=== PATIENT | male | born 1955 | race Caucasian/White ===

== ENCOUNTER 2016-08-18 18:53 | Inpatient (IN) | payer BC, OTHER ==
[~2016-08-18] VITALS: Ht 177.8 cm; Wt 121.4 kg
[2016-08-18] MEDS ORDERED: VANCOMYCIN PER PHARMACY MC ONE (20:30)
[2016-08-18] MEDS ORDERED: SODIUM CHLORIDE 0.9% 1,000ML IVBOLUS ONE (20:30)
[2016-08-18] MEDS ORDERED: SODIUM CHLORIDE FLUSH 10ML SYR IVF ONE (20:30)
[2016-08-18 20:57] LABS: HEMOGLOBIN 12.2 g/dL (13.7-18.0)
[2016-08-18] MEDS ORDERED: PHARMACOKINETIC MONITORING MC ONE (21:00)
[2016-08-18] MEDS ORDERED: PHARMACOKINETIC CONSULTATION MC ONE (21:00)
[2016-08-18] MEDS ORDERED: PLEASE ENTER ALLERGIES MC SCH ×2 (21:00)
[2016-08-18] MEDS ORDERED: VANCOMYCIN 2,100 MG in SODIUM CHLORIDE 0.9% 500 ML IV ONE (21:00)
[2016-08-18 21:03] LABS: BLOOD UREA NITROGEN 16 mg/dL (7-18)
[2016-08-18] MEDS ORDERED: OMNIPAQUE 350 MG/ML, 100ML BOTTLE ONE (21:34)
[2016-08-18] MEDS ORDERED: HYDROcodone/APAP 5/325 TABLET ONE (22:07)
[2016-08-18] MEDS ORDERED: HYDROcodone/APAP 5/325 TABLET PO ONE (22:30)
[2016-08-18 22:57] VITALS: BP 148/87
[2016-08-18] MEDS ORDERED: ACETAMINOPHEN 325 MG TABLET PO PRN (23:00)
[2016-08-18] MEDS ORDERED: VANCOMYCIN PER PHARMACY MC PRN (23:00)
[2016-08-18] MEDS ORDERED: HYDROmorphone 2 MG/ML, 1ML IV PRN (23:00)
[2016-08-18] MEDS ORDERED: PHARMACOKINETIC MONITORING MC PRN (23:00)
[2016-08-18] MEDS ORDERED: BISACODYL 10 MG SUPP PR PRN (23:00)
[2016-08-18] MEDS ORDERED: ONDANSETRON 2MG/ML, 2ML IVP PRN (23:00)
[2016-08-18] MEDS ORDERED: POLYETHYLENE GLYCOL 17 GM PACKET PO PRN (23:00)
[2016-08-18] MEDS: SODIUM CHLORIDE FLUSH 10ML SYR IVF SCH (23:11)
[2016-08-18] MEDS: KETOROLAC 30 MG/1 ML IVPush SCH (23:28)
[2016-08-18] MEDS: HEPARIN 5,000 UNITS/ML, 1ML SQ SCH (23:28)
[2016-08-19] MEDS: PIPERACILLIN/TAZO/PMX 3.375GM 50 ML IV SCH ×4 (02:08→20:05)
[2016-08-19] MEDS ORDERED: FLU VACC QS2016-17 (36MOS+)UP/PF 0.5 ML IM-VACC ONE (05:00)
[2016-08-19 05:15] VITALS: BP 135/77
[2016-08-19] MEDS: KETOROLAC 30 MG/1 ML IVPush SCH ×3 (05:36→16:49)
[2016-08-19 06:06] LABS: HEMOGLOBIN 10.9 g/dL (13.7-18.0)
[2016-08-19 06:18] LABS: BLOOD UREA NITROGEN 17 mg/dL (7-18)
[2016-08-19 06:22] LABS: ASPARTATE AMINO TRANSFERASE 14 U/L (15-37)
[2016-08-19] MEDS: HEPARIN 5,000 UNITS/ML, 1ML SQ SCH ×2 (07:47→20:06)
[2016-08-19] MEDS: SENNA/DOCUSATE TABLET PO SCH ×2 (07:47→16:49)
[2016-08-19 08:19] VITALS: BP 108/57
[2016-08-19] MEDS: SODIUM CHLORIDE FLUSH 10ML SYR IVF SCH ×2 (10:14→20:06)
[2016-08-19] MEDS: ASCORBIC ACID 500 MG TABLET PO SCH (10:14)
[2016-08-19] MEDS: VANCOMYCIN 2,100 MG in SODIUM CHLORIDE 0.9% 500 ML IV SCH ×2 (10:15→22:56)
[2016-08-19] MEDS: SODIUM CHLORIDE NASAL SPRAY 45ML BOTTLE NAS SCH ×2 (11:00→22:55)
[2016-08-19] MEDS: FERROUS SULFATE 325 MG TABLET PO SCH ×2 (12:00→16:49)
[2016-08-19] MEDS ORDERED: LIDOCAINE 1%-EPI 1:100K, 20ML INFIL ONE (12:00)
[2016-08-19] MEDS: HYDROmorphone 2 MG/ML, 1ML IV PRN (13:22)
[2016-08-19 14:01] VITALS: BP 122/76
[2016-08-19] MEDS: FLUTICASONE NASAL SPRAY 16GM NAS SCH ×2 (14:26→22:55)
[2016-08-19] MEDS: LACTOBACILLUS CHEW TABLET PO SCH ×2 (16:48→22:56)
[2016-08-19 20:00] VITALS: BP 135/65
[2016-08-20] MEDS: KETOROLAC 30 MG/1 ML IVPush SCH ×4 (00:02→18:04)
[2016-08-20] MEDS: PIPERACILLIN/TAZO/PMX 3.375GM 50 ML IV SCH ×2 (02:06→07:44)
[2016-08-20 02:23] VITALS: BP 134/77
[2016-08-20] MEDS: HEPARIN 5,000 UNITS/ML, 1ML SQ SCH ×3 (04:51→21:40)
[2016-08-20 05:59] LABS: BLOOD UREA NITROGEN 19 mg/dL (7-18)
[2016-08-20 06:10] LABS: HEMOGLOBIN 10.1 g/dL (13.7-18.0)
[2016-08-20] MEDS: HYDROmorphone 2 MG/ML, 1ML IV PRN (06:30)
[2016-08-20 06:58] VITALS: BP 129/71
[2016-08-20] MEDS: VANCOMYCIN 2,100 MG in SODIUM CHLORIDE 0.9% 500 ML IV SCH ×2 (10:00→22:20)
[2016-08-20] MEDS: SODIUM CHLORIDE NASAL SPRAY 45ML BOTTLE NAS SCH ×2 (10:00→21:41)
[2016-08-20] MEDS: FLUTICASONE NASAL SPRAY 16GM NAS SCH ×2 (10:00→21:41)
[2016-08-20] MEDS: FERROUS SULFATE 325 MG TABLET PO SCH ×3 (10:00→16:59)
[2016-08-20] MEDS: ASCORBIC ACID 500 MG TABLET PO SCH (10:01)
[2016-08-20] MEDS: LACTOBACILLUS CHEW TABLET PO SCH ×3 (10:01→21:41)
[2016-08-20] MEDS: SODIUM CHLORIDE FLUSH 10ML SYR IVF SCH ×2 (10:01→21:40)
[2016-08-20] MEDS: SENNA/DOCUSATE TABLET PO SCH (10:01)
[2016-08-20 15:28] VITALS: BP 144/76
[2016-08-20 20:22] VITALS: BP 161/89
[2016-08-21] MEDS: KETOROLAC 30 MG/1 ML IVPush SCH ×3 (00:04→12:28)
[2016-08-21 02:40] VITALS: BP 159/78
[2016-08-21] MEDS: HEPARIN 5,000 UNITS/ML, 1ML SQ SCH ×2 (05:38→12:27)
[2016-08-21 06:47] VITALS: BP 152/79
[2016-08-21] MEDS: LACTOBACILLUS CHEW TABLET PO SCH (09:58)
[2016-08-21] MEDS: ASCORBIC ACID 500 MG TABLET PO SCH (09:58)
[2016-08-21] MEDS: VANCOMYCIN 2,100 MG in SODIUM CHLORIDE 0.9% 500 ML IV SCH (09:58)
[2016-08-21] MEDS: FERROUS SULFATE 325 MG TABLET PO SCH ×2 (09:58→13:07)
[2016-08-21] MEDS: SODIUM CHLORIDE NASAL SPRAY 45ML BOTTLE NAS SCH (09:59)
[2016-08-21] MEDS: SODIUM CHLORIDE FLUSH 10ML SYR IVF SCH (09:59)
[2016-08-21] MEDS: SENNA/DOCUSATE TABLET PO SCH (09:59)
[2016-08-21] MEDS: FLUTICASONE NASAL SPRAY 16GM NAS SCH (09:59)
[2016-08-21 12:05] VITALS: BP 161/79
[2016-08-21] MEDS ORDERED: FLUT16SP NAS (12:16)
[2016-08-21] MEDS ORDERED: ASCO500T6 PO (12:16)
[2016-08-21] MEDS ORDERED: SULF1TAB3 PO (12:16)
[2016-08-21] MEDS ORDERED: FERR325T20 PO (12:16)
[2016-08-21] MEDS ORDERED: SENN1TAB7 PO (12:16)
[2016-08-21] MEDS ORDERED: ACET325T14 PO (12:16)
[2016-08-21] MEDS ORDERED: SODI45SP5 NAS (12:16)
[2016-08-21] MEDS ORDERED: ACID1TAB7 PO (12:16)
[2016-08-21 13:56] VITALS: BP 156/88
[2016-08-21] MEDS ORDERED: SULFAMETH./TRIMETHOPRIM DS 800MG/160MG TABLET PO SCH (21:00)
== END 2016-08-21 14:00 | disposition home or self-care (01) | DRG 603 ==
LOC: ED 22:04 → EDIP 22:05 → ED 22:27 → 4NOR 22:45
PROC: 0W963ZZ Drainage of Neck, Percutaneous Approach (ICD-10-PCS; principal; 2016-08-19)
DX: L02.11 Cutaneous abscess of neck (principal); D50.9 Iron deficiency anemia, unspecified; E66.9 Obesity, unspecified; G47.33 Obstructive sleep apnea (adult) (pediatric); I10 Essential (primary) hypertension; Z80.3 Family history of malignant neoplasm of breast; L03.221 Cellulitis of neck; B95.62 Methicillin resistant Staphylococcus aureus infection as the cause of diseases classified elsewhere; Z68.38 Body mass index [BMI] 38.0-38.9, adult
CPT/HCPCS: 36415; 70491; 80048; 80053; 82040; 82728; 83540; 83550; 83605; 85025; 87040; 87070; 87077; 87147; 87186; 87205; 90686; 96361; 96365; J1170; J1644; J1885; J2543; J3370; J3490; Q9967; J7030; J7040

== ENCOUNTER 2017-08-29 09:21 | Emergency (ER) | payer OTHER ==
[~2017-08-29] VITALS: Ht 175.3 cm; Wt 113.9 kg
[~2017-08-29 09:21] MED LIST: ACET325T14 PO; ACID1TAB7 PO; ASCO500T6 PO; FERR325T18 PO; FLUT16SP NAS; LISI-167 PO; PRAV20TA2 PO; SENN1TAB7 PO; SODI45SP5 NAS; SULF-169 PO
[2017-08-29 09:23] VITALS: BP 146/81
== END 2017-08-29 10:05 | disposition home or self-care (01) ==
LOC: ED 09:50
DX: B02.9 Zoster without complications (principal); E78.5 Hyperlipidemia, unspecified; I10 Essential (primary) hypertension
CPT/HCPCS: 99281